=== PATIENT | male | born 1930 | race Caucasian/White ===

== ENCOUNTER 2018-03-20 11:13 | Inpatient (IN) | payer OTHER ==
[~2018-03-20] VITALS: Ht 160 cm; Wt 59.0 kg
[2018-03-20 11:28] VITALS: Ht 160 cm; Wt 59.0 kg
[2018-03-20 12:03] LABS: BASOPHIL % 0.2 % (0-2); PLATELET COUNT 134 x10^3mcL (130-400); RED CELL DISTRIBUTION WIDTH 14.4 % (11.5-14.5)
[2018-03-20 12:12] LABS: CALCIUM 9.5 mg/dL (8.5-10.1); CARBON DIOXIDE 31.2 mmol/L (21-32); CHLORIDE SERUM 96 mmol/L (98-107); CREATININE SERUM 1.7 mg/dL (0.7-1.3); GLUCOSE SERUM 135 mg/dL (74-106); POTASSIUM SERUM 4.1 mmol/L (3.5-5.1); SODIUM SERUM 137 mmol/L (136-145)
[2018-03-20 12:17] LABS: ALBUMIN 3.5 g/dL (3.4-5.0); ALKALINE PHOSPHATASE 85 U/L (46-116); ALT/SGPT 25 U/L (16-63); AST/SGOT 31 U/L (15-37); BILIRUBIN TOTAL 1.4 mg/dL (0.20-1.00); CHOLESTEROL 142 mg/dL (<200); TOTAL PROTEIN, SERUM 7.7 g/dL (6.4-8.2)
[2018-03-20 12:33] LABS: HDL CHOLESTEROL 86 mg/dL (40-60)
[2018-03-20] MEDS ORDERED: FOSAMAX70 M1 PO (14:25)
[2018-03-20] MEDS ORDERED: ARTIFICIALS TEA30 ML OP (14:26)
[2018-03-20] MEDS ORDERED: BENAZEPRIL HYDR10 M1 PO (14:27)
[2018-03-20] MEDS ORDERED: CARVEDILOL3.125 M1 PO (14:29)
[2018-03-20] MEDS ORDERED: CALCIUM MAG ZINC D PO (14:29)
[2018-03-20] MEDS ORDERED: DOCUSATE SODIU100 MG PO (14:30)
[2018-03-20] MEDS ORDERED: ERYOO OU (14:32)
[2018-03-20] MEDS ORDERED: HYDROCHLOROTHIA25 MG PO (14:32)
[2018-03-20] MEDS ORDERED: LASIX40 MG PO (14:32)
[2018-03-20] MEDS ORDERED: FISH OIL 1,2001 EAC2 PO (14:32)
[2018-03-20] MEDS ORDERED: MELATONIN3 MG PO (14:35)
[2018-03-20] MEDS ORDERED: PRADAXA150 M1 PO (14:36)
[2018-03-20] MEDS ORDERED: NIASPAN500 MG PO (14:36)
[2018-03-20] MEDS ORDERED: PRAVASTATIN SOD20 M1 PO (14:37)
[2018-03-20] MEDS ORDERED: [UNRECOGNIZED DRUG - MIXTURE] OU (14:38)
[2018-03-20] MEDS ORDERED: SPECTRAVITE SE1 EACH PO (14:38)
[2018-03-20 15:42] LABS: BILIRUBIN DIRECT 0.5 mg/dL (0.0-0.2); BILIRUBIN TOTAL 1.4 mg/dL (0.20-1.00)
[2018-03-20 15:43] LABS: MAGNESIUM 1.8 mg/dL (1.8-2.4); PHOSPHOROUS 3.6 mg/dL (2.5-4.9)
[2018-03-20 15:47] LABS: CHOLESTEROL/HDL RATIO 1.6
[2018-03-20 15:52] LABS: FREE T4 1.13 ng/dL (0.76-1.46); T4(THYROXINE) 5.1 ug/dL (4.7-13.3)
[2018-03-20 16:00] VITALS: BP 119/57
[2018-03-20 16:06] LABS: AMPHETAMINE QUAL UR NONE DETECTED (NEG <=1000)
[2018-03-20 17:31] VITALS: BP 119/57
[2018-03-20 18:49] LABS: T3 TOTAL 0.34 ng/mL
[2018-03-20 21:17] VITALS: BP 102/51
[2018-03-20 21:28] LABS: microscopic required? YES; urine erythrocyte NEGATIVE (NEGATIVE)
[2018-03-21 06:01] VITALS: BP 120/88
[2018-03-21 06:31] LABS: BASOPHIL % 0 % (0-2); PLATELET COUNT 99 x10^3mcL (130-400); RED CELL DISTRIBUTION WIDTH 14.7 % (11.5-14.5)
[2018-03-21 06:36] LABS: CALCIUM 8.5 mg/dL (8.5-10.1); CARBON DIOXIDE 28.2 mmol/L (21-32); CHLORIDE SERUM 100 mmol/L (98-107); GLUCOSE SERUM 183 mg/dL (74-106); MAGNESIUM 1.7 mg/dL (1.8-2.4); PHOSPHOROUS 3.7 mg/dL (2.5-4.9); SODIUM SERUM 138 mmol/L (136-145)
[2018-03-21 06:57] LABS: POTASSIUM SERUM 2.9 mmol/L (3.5-5.1)
[2018-03-21 09:10] VITALS: BP 117/70
[2018-03-21 12:35] VITALS: BP 85/43
[2018-03-21 17:31] VITALS: BP 109/61
[2018-03-21 20:00] VITALS: BP 97/55
[2018-03-22] VITALS (9 sets, daily range): BP systolic 73–110; BP diastolic 31–58
[2018-03-22 06:56] LABS: BASOPHIL % 0.1 % (0-2)
[2018-03-22 07:00] LABS: PLATELET COUNT 102 x10^3mcL (130-400); RED CELL DISTRIBUTION WIDTH 14.6 % (11.5-14.5)
[2018-03-22 08:55] LABS: CALCIUM 8.7 mg/dL (8.5-10.1); CARBON DIOXIDE 27.6 mmol/L (21-32); CHLORIDE SERUM 102 mmol/L (98-107); CREATININE SERUM 2.1 mg/dL (0.7-1.3); GLUCOSE SERUM 142 mg/dL (74-106); MAGNESIUM 2.6 mg/dL (1.8-2.4); PHOSPHOROUS 3.7 mg/dL (2.5-4.9); POTASSIUM SERUM 3.9 mmol/L (3.5-5.1); SODIUM SERUM 139 mmol/L (136-145)
[2018-03-23 05:30] VITALS: BP 158/66
[2018-03-23 06:48] LABS: CALCIUM 8.3 mg/dL (8.5-10.1); CARBON DIOXIDE 24.6 mmol/L (21-32); CHLORIDE SERUM 102 mmol/L (98-107); GLUCOSE SERUM 118 mg/dL (74-106); MAGNESIUM 2.3 mg/dL (1.8-2.4); PHOSPHOROUS 2.4 mg/dL (2.5-4.9); POTASSIUM SERUM 3.5 mmol/L (3.5-5.1); SODIUM SERUM 139 mmol/L (136-145)
[2018-03-23 06:50] LABS: BASOPHIL % 0 % (0-2); PLATELET COUNT 109 x10^3mcL (130-400); RED CELL DISTRIBUTION WIDTH 14.8 % (11.5-14.5)
[2018-03-23 10:36] VITALS: BP 134/71
[2018-03-23 12:30] VITALS: BP 191/50
[2018-03-23] MEDS ORDERED: LAC PO (14:27)
[2018-03-23] MEDS ORDERED: XARELTO15 M1 PO (14:27)
[2018-03-23] MEDS ORDERED: LEV250PM IV (14:29)
[2018-03-23] MEDS ORDERED: CLINDAMYCIN IV (14:34)
[2018-03-23 14:47] VITALS: BP 191/50
== END 2018-03-23 17:50 | DRG 177 ==
LOC: ED 11:13 → DU 13:42
PROVIDERS: Emergency Medicine; Family Medicine
DX: J69.0 Pneumonitis due to inhalation of food and vomit (principal); N17.0 Acute kidney failure with tubular necrosis; G93.41 Metabolic encephalopathy; I50.43 Acute on chronic combined systolic (congestive) and diastolic (congestive) heart failure; L03.114 Cellulitis of left upper limb; I42.0 Dilated cardiomyopathy; I50.9 Heart failure, unspecified; S50.02XA Contusion of left elbow, initial encounter; I11.0 Hypertensive heart disease with heart failure; I25.10 Atherosclerotic heart disease of native coronary artery without angina pectoris; E86.0 Dehydration; I48.91 Unspecified atrial fibrillation; M70.22 Olecranon bursitis, left elbow; H54.40 Blindness, one eye, unspecified eye; E87.6 Hypokalemia; E83.41 Hypermagnesemia; E87.8 Other disorders of electrolyte and fluid balance, not elsewhere classified; H16.001 Unspecified corneal ulcer, right eye; Z66 Do not resuscitate; G90.8 Other disorders of autonomic nervous system; I25.2 Old myocardial infarction; F03.90 Unspecified dementia, unspecified severity, without behavioral disturbance, psychotic disturbance, mood disturbance, and anxiety; Z68.22 Body mass index [BMI] 22.0-22.9, adult; Z95.1 Presence of aortocoronary bypass graft; Z95.810 Presence of automatic (implantable) cardiac defibrillator; W18.39XA Other fall on same level, initial encounter; Y93.89 Activity, other specified; Y92.048 Other place in boarding-house as the place of occurrence of the external cause
CPT/HCPCS: 82962; 83880; 84439; 92610-GN; 97110-GP; 97116-GP; 97530-GP; J0696; J1720; J1956; J2543; J3475; J3480; J3490; J7030; J7050; Q0092